=== PATIENT | female | born 1940 | race Two or more races ===

== ENCOUNTER 2018-03-07 09:02 | Outpatient (CLI) | payer OTHER ==
[~2018-03-07 09:02] MED LIST: METFORMIN HCL500 MG; PRAVASTATIN SOD20 MG; SYNTHROID50 MCG
== END 2018-03-07 13:50 | disposition home or self-care (01) ==
LOC: RAD 09:02
DX: M25.511 Pain in right shoulder (principal); M25.512 Pain in left shoulder; M25.542 Pain in joints of left hand; M25.541 Pain in joints of right hand; M79.641 Pain in right hand; M79.642 Pain in left hand; R10.11 Right upper quadrant pain

== ENCOUNTER → 2019-01-01 | Outpatient (CLI) | payer OTHER | END | disposition home or self-care (01) | LOC: RAD 501 09:17 | DX: R05 Cough (principal) ==

== ENCOUNTER 2019-02-05 08:24 | Outpatient (CLI) | payer OTHER | END 2019-02-05 08:26 | disposition home or self-care (01) | LOC: SONOGRAMA 08:24 | DX: S46.011A Strain of muscle(s) and tendon(s) of the rotator cuff of right shoulder, initial encounter (principal) ==

== ENCOUNTER → 2019-03-27 | Outpatient (CLI) | payer OTHER | END | disposition home or self-care (01) | LOC: MAMO-SONO 09:26 | DX: Z12.31 Encounter for screening mammogram for malignant neoplasm of breast (principal); Z12.39 Encounter for other screening for malignant neoplasm of breast; Z87.898 Personal history of other specified conditions; E03.8 Other specified hypothyroidism; E04.1 Nontoxic single thyroid nodule; E04.2 Nontoxic multinodular goiter; E89.0 Postprocedural hypothyroidism ==

== ENCOUNTER → 2019-03-27 | Outpatient (CLI) | payer OTHER | END | disposition home or self-care (01) | LOC: NUCLEAR 09:40 | DX: M81.0 Age-related osteoporosis without current pathological fracture (principal); Z13.820 Encounter for screening for osteoporosis ==

== ENCOUNTER 2019-06-18 08:47 | Outpatient (CLI) | payer OTHER | END 2019-06-18 08:54 | disposition home or self-care (01) | LOC: TOM 08:47 | DX: K57.30 Diverticulosis of large intestine without perforation or abscess without bleeding (principal); K57.32 Diverticulitis of large intestine without perforation or abscess without bleeding; R10.32 Left lower quadrant pain; K65.0 Generalized (acute) peritonitis ==

== ENCOUNTER 2020-06-17 11:05 | Outpatient (CLI) | payer OTHER | END 2020-06-17 11:09 | disposition home or self-care (01) | LOC: RAD 11:05 | PROVIDERS: ATTEND Internal Medicine Cardiovascular Disease | DX: M54.2 Cervicalgia (principal); M25.511 Pain in right shoulder ==

== ENCOUNTER → 2020-07-20 08:36 | Outpatient (CLI) | payer OTHER | END | disposition home or self-care (01) | LOC: LAB 08:36 | PROVIDERS: ATTEND Radiology Diagnostic Radiology | DX: M54.2 Cervicalgia (principal) ==

== ENCOUNTER 2020-07-20 09:43 | Outpatient (CLI) | payer OTHER | END 2020-07-20 16:36 | disposition home or self-care (01) | LOC: MRI 09:43 | PROVIDERS: ATTEND Internal Medicine Cardiovascular Disease | DX: M48.02 Spinal stenosis, cervical region (principal); E03.8 Other specified hypothyroidism; E04.2 Nontoxic multinodular goiter | CPT/HCPCS: 72156; 76536; A9575; 72142 ==

== ENCOUNTER 2020-09-08 13:01 | Outpatient (CLI) | payer OTHER | END 2020-09-08 13:05 | disposition home or self-care (01) | LOC: SONOGRAMA 13:01 | PROVIDERS: ATTEND Internal Medicine Rheumatology | DX: M19.011 Primary osteoarthritis, right shoulder (principal); M65.811 Other synovitis and tenosynovitis, right shoulder ==

== ENCOUNTER 2020-10-20 10:11 | Outpatient (CLI) | payer OTHER | END 2020-10-20 10:13 | disposition home or self-care (01) | LOC: RAD 10:11 | PROVIDERS: ATTEND Ophthalmology | DX: I10 Essential (primary) hypertension (principal); H20.13 Chronic iridocyclitis, bilateral ==

== ENCOUNTER 2020-11-11 09:02 | Emergency (ER) | payer OTHER ==
[~2020-11-11] VITALS: Ht 154.9 cm; Wt 51.7 kg
[2020-11-11] MEDS ORDERED: LANTUS SOL100 UNIT/1 (09:24)
[2020-11-11] MEDS ORDERED: JANUVIA25 MG PO (09:24)
== END 2020-11-11 14:06 | disposition home or self-care (01) ==
LOC: ER 09:02
DX: R19.7 Diarrhea, unspecified (principal); R53.81 Other malaise; Z03.818 Encounter for observation for suspected exposure to other biological agents ruled out

== ENCOUNTER 2021-06-23 10:25 | Outpatient (CLI) | payer OTHER ==
[~2021-06-23 10:25] MED LIST changes: +JANUVIA25 MG PO; +LANTUS SOL100 UNIT/1
== END 2021-06-23 10:42 | disposition home or self-care (01) ==
LOC: MRI 10:25
DX: S46.091D Other injury of muscle(s) and tendon(s) of the rotator cuff of right shoulder, subsequent encounter (principal)
CPT/HCPCS: 73218

== ENCOUNTER 2021-07-16 09:38 | Outpatient (CLI) | payer OTHER | END 2021-07-16 09:41 | disposition home or self-care (01) | LOC: RAD 09:38 | PROVIDERS: ATTEND Internal Medicine Rheumatology | DX: M17.0 Bilateral primary osteoarthritis of knee (principal) ==

== ENCOUNTER → 2021-10-09 | Emergency (ER) | payer OTHER ==
[~2021-10-09] VITALS: Ht 152.4 cm; Wt 55.3 kg
== END | disposition home or self-care (01) ==
LOC: ER 08:55
DX: K82.8 Other specified diseases of gallbladder (principal); R10.11 Right upper quadrant pain

== ENCOUNTER 2022-12-19 10:02 | Outpatient (CLI) | payer OTHER | END 2022-12-19 10:35 | disposition home or self-care (01) | LOC: SONOGRAMA 10:02 | DX: E04.2 Nontoxic multinodular goiter (principal) ==